=== PATIENT | female | born 1980 | race Two or more races ===

== ENCOUNTER 2017-09-04 12:12 | Inpatient (IN) | payer MEDICAID ==
[~2017-09-04] VITALS: Ht 160 cm; Wt 81.3 kg
[~2017-09-04 12:12] MED LIST: FOLI20CA PO; METF10002 PO; SUSTAIN; [UNRECOGNIZED DRUG - OTHER]; [UNRECOGNIZED DRUG - OTHER]; [UNRECOGNIZED DRUG - OTHER]
[2017-09-04] MEDS ORDERED: OXYTOCIN 30U/ 0.9% NaCL 500ML 500 ML IV SCH (14:12)
[2017-09-04] MEDS ORDERED: LACTATED RINGERS 1,000 ML IV SCH (14:12)
[2017-09-04] MEDS: PLEASE ENTER HEIGHT AND WEIGHT MC SCH ×2 (14:15→22:15)
[2017-09-04] MEDS ORDERED: NEWBORN KIT ONE (14:15)
[2017-09-04] MEDS ORDERED: LACTATED RINGERS 1,000 ML IVBOLUS ONE (14:30)
[2017-09-04] MEDS ORDERED: SODIUM CITRATE/CITRIC ACID 30 ML UDC PO ONE (14:30)
[2017-09-04] MEDS ORDERED: METOCLOPRAMIDE 5 MG/ML, 2ML IV ONE (14:30)
[2017-09-04 14:49] LABS: BASOPHILS # (AUTO) 0.03 x10^3/uL (0-0.1); BASOPHILS % (AUTO) 0 % (0-1); EOSINOPHILS # (AUTO) 0.18 x10^3/uL (0-0.4); EOSINOPHILS % (AUTO) 2 % (1-7); LYMPHOCYTES # (AUTO) 2.06 x10^3/uL (1-3.4); LYMPHOCYTES % (AUTO) 20 % (22-44); MD NO; MEAN CORPUSCULAR HEMOGLOBIN 30.7 pg (27.0-34.8); MEAN CORPUSCULAR HGB CONC 33.8 g/dL (32.4-35.8); MEAN CORPUSCULAR VOLUME 90.9 fL (80-100); MEAN PLATELET VOLUME 8.8 fL (7.4-10.4); MONOCYTES # (AUTO) 0.76 x10^3/uL (0.2-0.8); MONOCYTES % (AUTO) 8 % (2-9); NEUTROPHILS # (AUTO) 7.19 x10^3/uL (1.8-6.8); NEUTROPHILS % (AUTO) 70 % (42-75); PLATELET COUNT 264 x10^3/uL (130-400)
[2017-09-04] MEDS ORDERED: SODIUM CITRATE/CITRIC ACID 30 ML UDC ONE (15:38)
[2017-09-04] MEDS ORDERED: METOCLOPRAMIDE 5 MG/ML, 2ML ONE (15:38)
[2017-09-04] MEDS: LACTATED RINGERS 1,000 ML IV SCH ×3 (15:44→23:44)
[2017-09-04] MEDS: OXYTOCIN 30U/ 0.9% NaCL 500ML 500 ML IV SCH (15:44)
[2017-09-04] MEDS ORDERED: FENTANYL PF 100 MCG/2ML ONE (15:56)
[2017-09-04] MEDS ORDERED: ONDANSETRON 2MG/ML, 2ML ONE (15:56)
[2017-09-04] MEDS ORDERED: OXYTOCIN 10 UNITS/ML, 1ML ONE (15:56)
[2017-09-04] MEDS ORDERED: HYDROmorphone 2 MG/ML, 1ML ONE (15:56)
[2017-09-04] MEDS ORDERED: CEFAZOLIN 1,000 MG ONE (15:56)
[2017-09-04] MEDS ORDERED: ACETAMINOPHEN 325 MG TABLET PO PRN (16:00)
[2017-09-04] MEDS ORDERED: ONDANSETRON 2MG/ML, 2ML IV PRN (16:00)
[2017-09-04] MEDS ORDERED: MISOPROSTOL 200 MCG TABLET PR PRN (16:00)
[2017-09-04] MEDS ORDERED: METOCLOPRAMIDE 5 MG/ML, 2ML IV PRN (16:00)
[2017-09-04] MEDS ORDERED: BISACODYL 10 MG SUPP PR PRN (16:00)
[2017-09-04] MEDS ORDERED: OXYTOCIN 30U/ 0.9% NaCL 500ML 500 ML ONE (16:13)
[2017-09-04] MEDS: KETOROLAC 30 MG/1 ML IV SCH (19:55)
[2017-09-04 20:00] VITALS: BP 103/63
[2017-09-05] VITALS: BP 113/76
[2017-09-05] MEDS: OXYcodone/APAP 5/325MG TABLET PO PRN ×2 (00:50→04:43)
[2017-09-05] MEDS: OXYTOCIN 30U/ 0.9% NaCL 500ML 500 ML IV SCH ×3 (01:44→21:44)
[2017-09-05] MEDS: LACTATED RINGERS 1,000 ML IV SCH ×6 (01:44→23:44)
[2017-09-05] MEDS: KETOROLAC 30 MG/1 ML IV SCH ×4 (02:15→19:59)
[2017-09-05 04:00] VITALS: BP 103/68
[2017-09-05] MEDS: OXYcodone IR 5MG TABLET PO PRN ×5 (04:39→23:29)
[2017-09-05 05:56] LABS: BASOPHILS # (AUTO) 0.01 x10^3/uL (0-0.1); BASOPHILS % (AUTO) 0 % (0-1); EOSINOPHILS # (AUTO) 0.23 x10^3/uL (0-0.4); EOSINOPHILS % (AUTO) 2 % (1-7); LYMPHOCYTES # (AUTO) 1.92 x10^3/uL (1-3.4); LYMPHOCYTES % (AUTO) 14 % (22-44); MD NO; MEAN CORPUSCULAR HEMOGLOBIN 30.2 pg (27.0-34.8); MEAN CORPUSCULAR HGB CONC 33.1 g/dL (32.4-35.8); MEAN CORPUSCULAR VOLUME 91.5 fL (80-100); MEAN PLATELET VOLUME 8.9 fL (7.4-10.4); MONOCYTES # (AUTO) 0.85 x10^3/uL (0.2-0.8); MONOCYTES % (AUTO) 6 % (2-9); NEUTROPHILS # (AUTO) 10.31 x10^3/uL (1.8-6.8); NEUTROPHILS % (AUTO) 77 % (42-75); PLATELET COUNT 240 x10^3/uL (130-400); RED BLOOD COUNT 3.95 x10^6/uL (3.82-5.3); RED CELL DISTRIBUTION WIDTH 14.4 % (9.6-15.2)
[2017-09-05] MEDS: MEPERIDINE/PF 50 MG/ML IVPush PRN (06:11)
[2017-09-05] MEDS: PLEASE ENTER HEIGHT AND WEIGHT MC SCH ×2 (06:15→14:15)
[2017-09-05 08:00] VITALS: BP 101/64
[2017-09-05] MEDS: PRENATAL VIT/IRON/FA 1 EACH TABLET PO SCH (08:47)
[2017-09-05] MEDS: DOCUSATE 100 MG CAPSULE PO PRN ×2 (08:47→19:21)
[2017-09-05 12:00] VITALS: BP 105/69
[2017-09-05 19:45] VITALS: BP 115/76
[2017-09-05] MEDS ORDERED: DIPH,PERTUSS(ACELL),TET VAC/PF NC IM-VACC ONE (20:30)
[2017-09-06] MEDS: KETOROLAC 30 MG/1 ML IV SCH ×3 (02:05→13:57)
[2017-09-06] MEDS: OXYcodone IR 5MG TABLET PO PRN ×4 (04:28→20:39)
[2017-09-06 07:10] VITALS: BP 110/75
[2017-09-06] MEDS: PRENATAL VIT/IRON/FA 1 EACH TABLET PO SCH (07:53)
[2017-09-06] MEDS: DOCUSATE 100 MG CAPSULE PO PRN ×2 (07:53→20:38)
[2017-09-06] MEDS: LACTATED RINGERS 1,000 ML IV SCH ×3 (15:44→23:44)
[2017-09-06] MEDS: OXYTOCIN 30U/ 0.9% NaCL 500ML 500 ML IV SCH (17:44)
[2017-09-06 20:25] VITALS: BP 124/73
[2017-09-06] MEDS: IBUPROFEN 600 MG TABLET PO PRN (20:38)
[2017-09-07] MEDS: OXYcodone IR 5MG TABLET PO PRN ×4 (00:41→18:04)
[2017-09-07] MEDS: IBUPROFEN 600 MG TABLET PO PRN ×3 (02:20→17:26)
[2017-09-07] MEDS: OXYTOCIN 30U/ 0.9% NaCL 500ML 500 ML IV SCH (03:44)
[2017-09-07] MEDS: LACTATED RINGERS 1,000 ML IV SCH ×2 (03:44→07:44)
[2017-09-07 08:00] VITALS: BP 113/78
[2017-09-07] MEDS: DOCUSATE 100 MG CAPSULE PO PRN ×2 (11:11→17:26)
[2017-09-07] MEDS: PRENATAL VIT/IRON/FA 1 EACH TABLET PO SCH (11:11)
[2017-09-07] MEDS: MEPERIDINE/PF 50 MG/ML IVPush PRN (11:22)
[2017-09-07] MEDS: OXYcodone/APAP 5/325MG TABLET PO PRN (15:30)
[2017-09-07] MEDS ORDERED: IBUP-1222 PO (17:50)
[2017-09-07] MEDS ORDERED: pericolace PO (17:51)
[2017-09-07] MEDS ORDERED: OXYC-302 PO (17:51)
== END 2017-09-07 18:15 | disposition home or self-care (01) | DRG 765 ==
LOC: LDIP 14:09 → 2NW 18:48
PROVIDERS: ADMIT Obstetrics & Gynecology Female Pelvic Medicine and Reconstructive Surgery; ATTEND Obstetrics & Gynecology Female Pelvic Medicine and Reconstructive Surgery
PROC: 10D00Z1 Extraction of Products of Conception, Low, Open Approach (ICD-10-PCS; principal; 2017-09-04)
PROC: 0U570ZZ Destruction of Bilateral Fallopian Tubes, Open Approach (ICD-10-PCS; 2017-09-04)
DX: O34.211 Maternal care for low transverse scar from previous cesarean delivery (principal); O99.354 Diseases of the nervous system complicating childbirth; Z3A.39 39 weeks gestation of pregnancy; Z37.0 Single live birth; G43.909 Migraine, unspecified, not intractable, without status migrainosus; O36.5930 Maternal care for other known or suspected poor fetal growth, third trimester, not applicable or unspecified; Z30.2 Encounter for sterilization
CPT/HCPCS: 36415; 85025; 86850; 86900; 88302; 90715; 93970; J0690; J1170; J1885; J2175; J2405; J3010; J2590; J2765; J7120